=== PATIENT | female | born 1980 | race Caucasian/White ===

== ENCOUNTER 2023-07-27 20:52 | Emergency (ER) | payer BC, SELFPAY ==
[2023-07-27 20:58] VITALS: BP 118/78; PULSE 83; RESP 16; TEMP 36.6; O2SAT 98; BMI 27.4
[2023-07-27 21:14] LABS: Appearance Urine Clear (Clear); Bilirubin Urine Negative (Negative); Blood Urine Negative (Negative); Color Urine Yellow (Yellow); Glucose Urine Negative (Negative); Ketones Urine Negative (Negative); Leukocyte Esterase Urine Trace (Negative); Nitrite Urine Negative (Negative); Protein Urine Negative (Negative); Specific Gravity Urine 1.025 (1.000-1.030); Urobilinogen Urine 0.2 (0.2-1.0)
[2023-07-27 21:54] LABS: Bacteria Urine Few; RBC Urine 0-2 (0-2); Squamous Epithelial Cell Urine Moderate (None-Few)
[2023-07-27 22:35] LABS: Ur HCG Qualitative* Negative (Negative)
--- NOTE | 2023-07-27 22:37 | XR_ITS ---
Patient: AMANDA COLVIN Facility:?[facility] Patient ID:?[id number] Site Patient ID:?[id number]. Site :?[id number] Study:?XRay-Chest 2 VIEW-07/27/2023 11:23:53 PM Ordering Physician:ROSARIO Final Report: INDICATION: Right posterior chest pain TECHNIQUE: Chest radiograph 2 views COMPARISON: None FINDINGS: Mediastinum: The mediastinum is normal in appearance. The cardiac silhouette is at upper limits of normal in size. Lung: Both lungs are unremarkable in appearance. No sign of pleural effusion seen. No pneumothorax is identified. Bone and Soft tissue: Unremarkable for age. IMPRESSION: 1. No acute cardiopulmonary disease is seen. Dictated by Sidney Cross MD @ 07/27/2023 11:31:42 PM Dictated by: Sidney Cross MD @ 07/27/2023 23:31:46 Signed by:?Sidney Cross MD @07/27/2023 11:31:46 PM (Electronic Signature)
--- NOTE | 2023-07-27 22:40 | ED.GENADULT ---
HPI - General Adult General Chief complaint: Flank Pain Stated complaint: R side back pain Time Seen by Provider: 07/27/23 22:28 Source: patient Mode of arrival: ambulatory Limitations: no limitations History of Present Illness HPI narrative: 42-year-old female presents the emergency department for evaluation of right flank area pain since earlier today. Tried taking 2 aspirin just prior to coming to the ED which did improve her pain quite a bit. Pain is worse with taking a deep breath, it is not accompanied by fever or cough. It radiates from the right flank area around the lateral right rib and towards the right upper quadrant of the abdomen. She feels mildly nauseated but there is no vomiting. Pain is not worse with eating but is worse with movement and deep breath. No history of DVT or PE, no swelling in the legs. No trauma or injury, no prior history of similar symptoms. She noticed bruising on her abdomen which caused her concern. No diarrhea, no productive cough. No vomiting. Did not try other interventions besides the aspirin to help with symptoms. Opposite side unaffected, no prior history of similar symptoms. Past medical history benign per her report, no major long-term health problems besides occasional migraines. Her only long-term medication is topiramate nightly for migraine prophylaxis. Nonsmoker. ROS notable for the right flank pain as described above, otherwise denies times 12 systems. Related Data Home Medications Medication Instructions Recorded Confirmed topiramate 50 mg tablet 50 mg PO QDAY 12/14/21 12/14/21 Allergies Allergy/AdvReac Type Severity Reaction Status Date / Time No Known Drug Allergies Allergy Verified 12/14/21 09:33 [facility] Social History Smoking Status: Never smoker Exam Const: Vital Signs, click to edit/add: Vital Signs - 24 hr 07/27/23 20:58 Temperature 98 F Pulse Rate [Pulse Oximeter] 83 Respiratory Rate 16 Blood Pressure [Ri ght Upper Arm] 118/78 Pulse Oximetry 98 Oxygen Delivery Me thod Room Air Documenting provider has reviewed patient's vital signs: yes Common normals: no apparent distress General appearance: cooperative, comfortable and well kempt HENMT: Common normals: normocephalic, moist oral mucous membranes and oropharynx normal Head and scalp: normocephalic Eye: Common normals: conjunctivae normal General eye: normal appearance of both eyes Conjunctiva: conjunctiva(e) normal Neck & C-Spine: Common normals: full ROM and no lymphadenopathy Resp: Common normals: normal respiratory effort, no use of accessory muscles and clear to auscultation bilaterally Effort & inspection: able to speak in complete sentences Auscultation: clear to auscultation bilaterally Cardio: Common normals: regular rate, regular rhythm, S1 normal heart sound, S2 normal heart sound and no murmurs Rate: regular rate Rhythm: regular rhythm Heart sounds: S1 normal and S2 normal GI: Common normals: Normal to inspection, nondistended, normoactive bowel sounds present, soft to palpation, non-tender, no hepatosplenomegaly and no masses Palpation: soft and no hepatosplenomegaly : Common normals: no CVA tenderness Bladder/kidney exam: no CVA tenderness Back & Pelvis: Common normals: no CVA tenderness, thoracic and lumbar spine normal to inspection and no thoracic nor lumbar tenderness Extremity: Common normals: normal to inspection and normal capillary refill Psych: Appearance: well kempt Attitude: engaged Insight: insight good Judgement: judgment good Skin: Narrative: ?bruising? in question is mild diffuse hyperpigmentation likely related to [place] dermatitis or tinnea versicolor Course Course ED Course: Flank pain with urinalysis not suspicious for blood or infection. Pain increased with inspiration, cough and movement suspicious for pleurisy. Differential diagnosis also including pneumonia, musculoskeletal etiology, renal abnormality, gallbladder disease, pulmonary embolism. Declines pain medication. Recommend a few basic labs to look for problems with the gallbladder, as stated urinalysis is reassuring. Will get chest x-ray and await findings. Reevaluation(s) Time of Reevaluation #1: 00:33 Reevaluation #1: Reviewed findings with patient, overall very reassuring. Suspect pleurisy but some constipation was seen on x-ray also, likely noncontributory. Suspect viral pleurisy. I recommend Tylenol and ibuprofen for symptomatic care. If she has persistent symptoms if especially postprandial, should have further workup on gallbladder. No signs of obstruction based on labs today. We reviewed alarm symptoms, all questions answered, written instructions provided. See discharge instructions. Vital Signs Vital signs: Initial Vital Signs Temperature 98 F 07/27/23 20:58 Temperature Source Temporal Artery Scan 07/27/23 20:58 Pulse Rate 83 07/27/23 20:58 Respiratory Rate 16 07/27/23 20:58 Blood Pressure 118/78 07/27/23 20:58 Blood Pressure Mean 91 07/27/23 20:58 Blood Pressure Position Sitting 07/27/23 20:58 Pulse Oximetry 98 07/27/23 20:58 Oxygen Delivery Method Room Air 07/27/23 20:58 Vital Signs Temperature 98 F 07/27/23 20:58 Pulse Rate 83 07/27/23 20:58 Respiratory Rate 16 07/27/23 20:58 Blood Pressure 118/78 07/27/23 20:58 Pulse Oximetry 98 07/27/23 20:58 Oxygen Delivery Method Room Air 07/27/23 20:58 Temperature 98 F 07/27/23 20:58 Pulse Rate 83 07/27/23 20:58 Respiratory Rate 16 07/27/23 20:58 Blood Pressure 118/78 07/27/23 20:58 Pulse Oximetry 98 07/27/23 20:58 Oxygen Delivery Method Room Air 07/27/23 20:58 Medical Decision Making Lab Data Lab results reviewed: Yes I reviewed the patient's lab results Lab results narrative: All reassuring. Labs: Lab Results 07/27/23 07/27/23 07/27/23 Range/Units 21:03 21:59 22:37 WBC (4.50-11.00) K/uL RBC (4.00-5.20) m/uL Hgb (12.0-16.0) gm/dL Hct (33.0-51.0) % MCV (80-100) fL MCH (26-34) pg MCHC (32-36) gm/dL RDW Coeff of Malissa (11.5-15.5) % Plt Count (140-440) K/uL Neut % (Auto) (42.0-72.0) % Lymph % (Auto) (20-44) % Glenn % (Auto) (0.0-11.0) % Eos % (Auto) (0.0-7.0) % Baso % (Auto) (0.0-3.0) % Neut # (Auto) (1.7-7.0) K/uL Lymph # (Auto) (0.90-2.90) K/uL Glenn # (Auto) (0.00-0.90) K/UL Eos # (Auto) (0.00-0.50) K/uL Baso # (Auto) (0.00-0.30) K/uL Abs Immat Gran (auto) (0.00-0.30) K/uL Imm/Tot Granulo (auto) % D-Dimer Quant (PE/DVT) (0.00-0.50) ug/ml Total Bilirubin (0.1-1.5) mg/dL Direct Bilirubin (0.0-0.5) mg/dL AST (12-35) U/L ALT (4-35) U/L Alkaline Phosphatase (40-150) U/L C-Reactive Protein (0.5-1.0) mg/dL Total Protein (6.0-8.3) g/dL Albumin (3.3-5.0) g/dL Lipase (23-300) U/L Urine Color Yellow (Yellow) Urine Appearance Clear (Clear) Urine pH 7.0 (5.0-8.5) Ur Specific Jasper 1.025 (1.000-1.030) Urine Protein Negative (Negative) Urine Glucose (UA) Negative (Negative) Urine Ketones Negative (Negative) Urine Blood Negative (Negative) Urine Nitrite Negative (Negative) Urine Bilirubin Negative (Negative) Urine Urobilinogen 0.2 (0.2-1.0) Ur Leukocyte Esterase Trace A (Negative) Urine RBC 0-2 (0-2) Urine WBC 2-5 (0-5) Ur Squamous Epith Cells Moderate A (None-Few) Urine Bacteria Few A (None) Urine HCG, Qual Negative (Negative) POC Troponin I 0.00 L (0.01-0.04) ng/ml 07/27/23 Range/Units 22:54 WBC 8.57 (4.50-11.00) K/uL RBC 4.40 (4.00-5.20) m/uL Hgb 12.4 (12.0-16.0) gm/dL Hct 37.8 (33.0-51.0) % MCV 86 (80-100) fL MCH 28 (26-34) pg MCHC 33 (32-36) gm/dL RDW Coeff of Malissa 12.2 (11.5-15.5) % Plt Count 344 (140-440) K/uL Neut % (Auto) 61.8 (42.0-72.0) % Lymph % (Auto) 25.0 (20-44) % Glenn % (Auto) 9.5 (0.0-11.0) % Eos % (Auto) 2.1 (0.0-7.0) % Baso % (Auto) 0.5 (0.0-3.0) % Neut # (Auto) 5.31 (1.7-7.0) K/uL Lymph # (Auto) 2.14 (0.90-2.90) K/uL Glenn # (Auto) 0.80 (0.00-0.90) K/UL Eos # (Auto) 0.18 (0.00-0.50) K/uL Baso # (Auto) 0.04 (0.00-0.30) K/uL Abs Immat Gran (auto) 0.09 (0.00-0.30) K/uL Imm/Tot Granulo (auto) 1.1 % D-Dimer Quant (PE/DVT) 0.32 (0.00-0.50) ug/ml Total Bilirubin 0.2 (0.1-1.5) mg/dL Direct Bilirubin 0.1 (0.0-0.5) mg/dL AST 23 (12-35) U/L ALT 22 (4-35) U/L Alkaline Phosphatase 60 (40-150) U/L C-Reactive Protein < 0.5 L (0.5-1.0) mg/dL Total Protein 7.2 (6.0-8.3) g/dL Albumin 4.3 (3.3-5.0) g/dL Lipase 69 (23-300) U/L Urine Color (Yellow) Urine Appearance (Clear) Urine pH (5.0-8.5) Ur Specific Jasper (1.000-1.030) Urine Protein (Negative) Urine Glucose (UA) (Negative) Urine Ketones (Negative) Urine Blood (Negative) Urine Nitrite (Negative) Urine Bilirubin (Negative) Urine Urobilinogen (0.2-1.0) Ur Leukocyte Esterase (Negative) Urine RBC (0-2) Urine WBC (0-5) Ur Squamous Epith Cells (None-Few) Urine Bacteria (None) Urine HCG, Qual (Negative) POC Troponin I (0.01-0.04) ng/ml Imaging Data Chest x-ray: Attestation: I have reviewed the pertinent imaging results. My impression: Normal chest x-ray, fair amount of gas and constipation seen on limited abdominal you Radiologist's impression: IMPRESSION: 1. No acute cardiopulmonary disease is seen. Dictated by Sidney Cross MD @ 07/27/2023 11:31:42 PM ECG Data Attestation: I personally reviewed and interpreted this ECG as follows: Prior ECG tracings: not available for review Interpretation: Normal sinus rhythm, rate 76. Normal intervals and axis. No significant ST or T-wave abnormalities. Normal EKG. Discharge Plan Discharge Clinical Impression: Pleurisy Patient Disposition: Home w/ Parent or Adult Condition: Improved Instructions: Pleurisy (DC) Additional Instructions: As we discussed, I think that your pain is most likely from pleurisy, a viral inflammation of the lining of the lungs. This tends to be worse with deep breath, cough and other stretching movements. Your blood work did not show any signs of complications with the heart, any pneumonia, any kidney stone, signs of gallbladder disease or blood clots. This is all reassuring. As we discussed, if you have nausea or persistent symptoms after eating, you should see your primary care doctor to look more closely at potential gallbladder problems. As also noted, there was a fair amount of gas and constipation seen in your colon. If you are feeling constipated, it would also be reasonable to try twice daily MiraLax for a few days until things clean out nicely. For pain, I recommend Tylenol 1000 mg every 6 hours and/or ibuprofen 600 mg every 6 hours for discomfort. Pleurisy tends to last 1-2 weeks. If there is any high fever, coughing up of blood, severe shortness of breath, worsening abdominal symptoms, you should come back to the emergency department or seek evaluation by your primary care provider. Activity Level: No Restrictions Discharge Diet: Regular Prescriptions: No Action topiramate 50 mg tablet 50 mg PO QDAY Follow Up/Referrals: Provider,Not a Local [Referring] - Stand Alone Forms: [employer] Info Instructions
[2023-07-27 22:59] LABS: Basophils Absolute Auto 0.04 K/uL (0.00-0.30); Basophils Percent Auto 0.5 % (0.0-3.0); Eosinophils Absolute Auto 0.18 K/uL (0.00-0.50); Eosinophils Percent Auto 2.1 % (0.0-7.0); Hematocrit 37.8 % (33.0-51.0); Hemoglobin* 12.4 gm/dL (12.0-16.0); Immature Granulocytes Abs Auto 0.09 K/uL (0.00-0.30); Immature Granulocytes Pct Auto 1.1 %; Lymphocytes Absolute Auto 2.14 K/uL (0.90-2.90); Mean Corpuscular HGB Conc 33 gm/dL (32-36); Mean Corpuscular Hemoglobin 28 pg (26-34); Mean Corpuscular Volume 86 fL (80-100); Monocytes Percent Auto 9.5 % (0.0-11.0); Neutrophils Absolute Auto 5.31 K/uL (1.7-7.0); Neutrophils Percent Auto 61.8 % (42.0-72.0); Platelet Count* 344 K/uL (140-440); RDW Coefficient of Variation % 12.2 % (11.5-15.5); White Blood Count* 8.57 K/uL (4.50-11.00)
[2023-07-27 23:01] LABS: Slide Review Reflex No
[2023-07-27 23:12] LABS: Albumin* 4.3 g/dL (3.3-5.0)
[2023-07-27 23:15] LABS: Bilirubin Direct* 0.1 mg/dL (0.0-0.5); Bilirubin Total* 0.2 mg/dL (0.1-1.5); Lipase* 69 U/L (23-300)
[2023-07-27 23:16] LABS: Alanine Aminotransferase* 22 U/L (4-35); Alkaline Phosphatase* 60 U/L (40-150); Aspartate Amino Transferase* 23 U/L (12-35); D Dimer Quantitative* 0.32 ug/ml (0.00-0.50); Total Protein* 7.2 g/dL (6.0-8.3)
[2023-07-27 23:20] LABS: C Reactive Protein* < 0.5 mg/dL (0.5-1.0)
== END 2023-07-28 00:39 | disposition home or self-care (01) ==
PROVIDERS: Emergency Medicine; Emergency Provider Family Medicine; PCP Family Medicine
DX: R09.1 Pleurisy (principal)
CPT/HCPCS: 36415; 71046; 80076; 81001; 81025; 83690; 84484; 85025; 85379; 86140; 87086; 93005; 99284; 99285

== ENCOUNTER 2023-12-12 00:17 | Emergency (ER) | payer BC, SELFPAY ==
[2023-12-12 00:35] VITALS: BP 134/86; PULSE 78; RESP 18; TEMP 36.2; O2SAT 98
--- NOTE | 2023-12-12 00:57 | ED_ITS ---
HPI - General Adult General Chief complaint: Arrhythmia/Palpitations Stated complaint: heart palpitations, skipping beats Time Seen by Provider: 12/12/23 00:34 Source: patient Mode of arrival: ambulatory Limitations: no limitations History of Present Illness HPI narrative: 43-year-old female with known prior history of PVCs presents to the emergency department with increased PVCs over the last few weeks. Getting these a few times per week now. Reports that she has had a thorough workup for this including blood work and what sounds like a 2 week ZIO patch last year, she does not remember what she was told. She did not have any recommendations have a follow-up echo or stress test as a result. It sounds like this was performed at [facility] and I do not have immediate access to these records overnight. No chest pain, no shortness of breath. She reports that she was feeling a little bit dizzy when she had the episodes earlier today. No history of AFib or dangerous arrhythmia. Does have a family history of coronary artery disease, none in herself. She is a nonsmoker. Denies any illicit drug use, heavy alcohol use or other risk factors for arrhythmia. No prior known history of obstructive sleep apnea. It sounds as though she had blood work a year ago and is not known to have any thyroid disease, electrolyte abnormality, chronic kidney disease. No new trauma or injury. Normal appetite and intake, no fever or recent illness. Did not try any interventions prior to coming to the ED. When asked specifically about any alarm symptoms such as syncope, chest pain, shortness of breath, neurological changes or other red flag symptoms that would typically bring someone to the emergency department overnight, she denies any of these symptoms. It does not sound as though she has had a trial of beta blockers for these. Past medical history benign per her report. No major long-term medical problems. No prior history of chest surgeries. No known drug allergies, no long-term prescription medications. Denies chance of . ROS notable for the PVCs as described above, otherwise denies times 12 systems. Related Data Home Medications ?Medication ?Instructions ?Recorded ?Confirmed clobetasol 0.05 % scalp solution topical 12/12/23 desonide 0.05 % topical cream applic topical 12/12/23 ketoconazole 2 % shampoo topical 12/12/23 Allergies Allergy/AdvReac Type Severity Reaction Status Date / Time No Known Drug Allergies Allergy Verified 10/11/23 18:38 [facility] Social History Smoking Status: Never smoker Exam Const: Vital Signs, click to edit/add: Vital Signs - 24 hr 12/12/23 00:35 Temperature 97.1 F L Pulse Rate [Pulse Oximeter] 78 Respiratory Rate 18 Blood Pressure [Ri ght Upper Arm] 134/86 Pulse Oximetry 98 Oxygen Delivery Me thod Room Air Course Course ED Course: Documentation Laly lacy: Course:? 43-year-old female with known prior history of PVCs presenting with increased PVCs over the last few weeks, a few times per week.? No red flag symptoms such as chest pain, significant dyspnea on exertion.? Vitals are stable.? It sounds as though patient has had thorough workup outpatient I your ago and does not have any known history of underlying kidney disease, thyroid disease or recent major illness.? I recommended EKG, basic labs to look for underlying exacerbating factors such as anemia, electrolyte abnormality, kidney disease, thyroid disease.? Counseled patient that with EMR down time, this may take a few hours.? Will keep on compliance monitor in the interim.? Discussed with patient that she may want to consider going on low-dose beta-tino therapy to help prevent symptoms but she may have side effects like fatigue, slight shortness of breath or dizziness from that treatment.? I do think a trial of the medications may be useful for her and she can decide if the side effects or the PVCs are more bothersome.? I do not see any indications that she would need an echo or advanced workup at this time.? Patient counseled on this.? Await lab results and monitoring trial. EKG per my interpretation showing sinus rhythm of 85.? PVCs present, otherwise normal intervals and axis.? No significant ST or T-wave abnormalities.? Unable to compare to previous, currently EMR down time. Laboratory study showing glucose of 102 sodium 138 potassium 3.8 creatinine 0.7 with a magnesium of 2.1 and a CRP level less than 0.05.? Hemoglobin 12.5 with white blood cell count of 7.9 and platelets of 326.? Neutrophil and differential otherwise unrevealing. Patient is monitored for about 90 minutes with no significant changes.? She reports her symptoms are stable.? Counseled on findings.? PVCs discussed.? Patient is not fully reassured by my explanation.? I encouraged her to consider a primary care outpatient visit to discuss this further.? No PVCs can be quite symptomatic, they are rarely dangerous.? There are no red flags with hers today.? We discussed use of a fitness tracking watch to help monitor for dangerous arrhythmias and we also discussed a trial of a beta-tino like atenolol to help reduce PVCs or her anxiety related to them.? I have encouraged discuss it further with her primary care provider.? Alarm symptoms reviewed that would warrant ED presentation.? Written instructions are provided, all questions answered.? Patient will be discharged home in stable condition. End of note. Vital Signs Vital signs: Initial Vital Signs Temperature 97.1 F L 12/12/23 00:35 Temperature Source Temporal Artery Scan 12/12/23 00:35 Pulse Rate 78 12/12/23 00:35 Pulse Rhythm Regular 12/12/23 00:35 Respiratory Rate 18 12/12/23 00:35 Blood Pressure 134/86 12/12/23 00:35 Blood Pressure Mean 102 12/12/23 00:35 Blood Pressure Position Sitting 12/12/23 00:35 Pulse Oximetry 98 12/12/23 00:35 Oxygen Delivery Method Room Air 12/12/23 00:35 Vital Signs Temperature 97.1 F L 12/12/23 00:35 Pulse Rate 78 12/12/23 00:35 Respiratory Rate 18 12/12/23 00:35 Blood Pressure 134/86 12/12/23 00:35 Pulse Oximetry 98 12/12/23 00:35 Oxygen Delivery Method Room Air 12/12/23 00:35 Temperature 97.1 F L 12/12/23 00:35 Pulse Rate 78 12/12/23 00:35 Respiratory Rate 18 12/12/23 00:35 Blood Pressure 134/86 12/12/23 00:35 Pulse Oximetry 98 12/12/23 00:35 Oxygen Delivery Method Room Air 12/12/23 00:35 Medical Decision Making Lab Data Lab results reviewed: Yes I reviewed the patient's lab results Discharge Plan Discharge Clinical Impression: Premature ventricular contraction Patient Disposition: Home, Self-Care Condition: Stable Instructions: Premature Ventricular Contractions (ED) Additional Instructions: Patient instructions on Laly Portillo: (discharegted) I apologize for the less professional looking discharge instructions, as discussed, we are on computer downtime tonight, we do this once monthly for required patches and updates. As we discussed, your abnormal heartbeat are consistent with PVCs, also known as premature ventricular contractions.? These are very common and they do seem consistent with her prior diagnosis.? I am not seeing any signs of dangerous heart rhythms, blockages in the arteries or other abnormalities.? Your labs were reassuring that there are no dangerous underlying causes for the PVCs.? As we discussed, you may want to consider going on a low-dose beta-tino medication to help prevent these like atenolol.? It does unfortunately carried a side effect of fatigue, some shortness of breath and there may be some dizziness as a result.? This may be something want to discuss more with her primary care provider.? I would like to reassure you though that these beats are not dangerous to you.? You can consider investing in a smart watch with an arrhythmia monitor.? This would help tract dangerous heart rhythms and may give you additional reassurance.? We recommend that people come to an emergency department if the heart rate is persistently over 130 at rest or if they are getting signals of the dangerous heart rhythms from their smart watch. Sometimes you can have increased episodes with recent alcohol intake or excessive caffeine.? Try to avoid these and drink plenty of water.? There could also be a correlation with poor sleep and stress, we recommend trying to mitigate these as best as possible. I do not recommend any additional major testing a like ultrasounds of the heart or stress test based on your symptoms.? I would recommend that he make a follow- up appointment with your primary care provider to discuss things further. Activity Level: No Restrictions Discharge Diet: Regular Prescriptions: No Action desonide 0.05 % cream topical ketoconazole 2 % shampoo topical clobetasol 0.05 % solution topical Follow Up/Referrals: Chanel Fisher MD [Primary Care Provider] - Stand Alone Forms: [employer] Info Instructions
--- OUTSIDE RECORDS SUMMARY | 2023-12-12 00:59 | XMS_ITS | Continuity of Care Document ---
Author Organization [facility] [employer], [id number] Address [address] [place] [address] Assessment Encounter Date Assessment Date Assessment LastModified by Organization Details LastModified Time 09/14/2023 09/14/2023 I spent a total of 40 minutes providing care for this patient including: preparing to see the patient, obtaining a medical history, completing a medically appropriate physical exam, completing documentation of visit information and plans in the EMR, counseling the patient regarding her diagnosis, treatment options and follow up plans, as well as any necessary communication of subsequent test results to the patient. This excludes time spent on separately billable services. [email or web address] Not available 09/14/2023 11:29:31 Plan of Treatment Reminders Order Date Submit Date Provider Last Modified By Organization Details Last Modified Time Details Appointments None record ed. Lab None record ed. Referral None record ed. Procedures None record ed. Surgeries None record ed. Imaging None record ed. Medication Orders None record ed. Patient TargetsNo targets recorded. Patient InstructionsNo instructions recorded. Reason for Referral None Reported. Results Created Date Observation Date Name Description Value Unit Range Abnormal Flag Note LastModifiedBy Organization Detail LastModifiedTime 09/14/19 24 09/14/2023 US, trans vagin al No observ ation record ed. [email or web address] Adams [id number], [place], [address], 09/15/2023 10:09:38 Result Notes None recorded. Problems No Known Problems Procedures Surgical History Date Name Laterality Status Provider Name and Address Organization Details Recorded Time 03/05/20 23 Date of Last [place] [address], [place], [address], [place] [facility] [employer] 09/14/2023 11:18:00 04/05/19 19 [place] [address], [place], [address], [place] [facility] [employer] 09/14/2023 10:22:38 04/28/19 18 Date of Last Pap Smear completed [facility] Will null, [place] [facility] 03/04/2020 17:03:19 04/05/19 07 reduction of fractured nasal bone completed Laly Will null, [facility] CHIEF CONTROLLER 03/04/2020 17:12:27 procedure on ankle completed Ester er Will null, [facility] CHIEF CONTROLLER 03/04/2020 17:11:55 excision of benign lesion of skin of extremities completed Laly Will null, [facility] CHIEF CONTROLLER 03/04/2020 17:12:07 Imaging Results None recorded. Procedure Notes None recorded. Medical Equipment None Reported. Allergies No known drug allergies Medications Name Sig Start Date Stop Date Status Note LastModified by Organization Details LastModified Time valacyclovi r 1 gram tablet active Not Available Not Available Not Available hydrocodone 5 mg-acetamin ophen 325 mg tablet TK 1-2 TS PO Q 6 H PRN P 03/04 completed Not Available Not Available Not Available valacyclovi r 500 mg tablet 09/13 completed Not Available Not Available Not Available cephalexin 500 mg capsule TK 1 C PO Q 8 H TAT 03/04 completed Not Available Not Available Not Available metronidazo le 0.75 % topical cream 09/13 completed Not Available Not Available Not Available methylpredn isolone 4 mg tablets in a dose pack START TODAY 03/04 completed Not Available Not Available Not Available ondansetron 4 mg disintegrat ing tablet DISSOLVE 1 T ON THE TONGUE Q 8 H PRF NAUSEA 03/04 completed Not Available Not Available Not Available topiramate 100 mg tablet 09/13 completed Not Available Not Available Not Available topiramate 50 mg tablet TK 2 TS PO QHS 09/13 completed Not Available Not Available Not Available Norlyda 0.35 mg tablet TAKE 1 TABLET BY MOUTH EVERY DAY 09/13 completed Not Available Not Available Not Available Vitals Date Recorded Body weight Body mass index (BMI) Body height Systolic blood pressure Diastolic blood pressure Provider Name and Address Organization Details Last Updated DateTime 09/14/2023 28842.15 g 30 kg/m2 157.48 cm 112 mm[Hg] 80 mm[Hg] Maddi Solorio (TERMED) [facility] 10:08:10 Social History Question Answer Notes LastModified by Organizat ion Details LastModified Time Tobacco Smoking Status Never Smoker Laly Amaya [place] [employer] 03/04/2020 17:07:20 Do You Have An Advance Directive? No Information not available 03/04/2020 What Is Your Level Of Caffeine Consumption? 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 Information not available 09/20/2023 Sex: Unknown Functional Status Question Answer Note LastModified by Organizat ion Details LastModified Time What is your exercise level? Occasional Information not available 03/04/2020 Mental Status None recorded. Family History Nothing Reported. Medical History Condition Response Endocrinology-Other Endocrinology- Glucose Intolerance/Insul in Resistance Y Hematology- Anemia Y Neurology- Headaches/Migraines Y Gynecological History Statement/Question Response Age at Menarche: 14 Date of Last Mammogram 03/05/2023 Date of LMP 09/08/2023 Current Control Method None History of Gestational Diabetes Y Date of Last Pap Smear 04/28/2017 Obstetrics History GPAL:G 3 P 3 0 0 3 Type Value Full Term 3 Living 3 Total 3 Immunizations Vaccine Type Date Status Provider Name and Address Organization Details Recorded Time Tdap 02/12/2022 completed Maddi Solorio (TERMED) [place] [employer] 09/14/2023 10:06:48 Novel [id number]-[id number], all formulations 02/01/2022 completed Maddi Solorio (TERMED) [place] [facility] [employer]IE[employer] 09/14/2023 10:06:48 Past Encounters Encounter ID Performer Location Encounter Start Date Encounter Closed Date Diagnosis/Indication Diagnosis SNOMED-CT Code Diagnosis ICD10 Code [id number] HAYDEN CURRIE MD [id number] [facility] [address] [place] [id number] 09/14/2023 09:51:41 09/14/2023 11:50:53 Menorrhagia 503214870 N92.0 History of anemia 733018 002 Z86.2 [id number] BRIELLE PEDRO, DO [id number] [facility] [address] [place], [place] [phone] 09/14/2023 10:20:25 09/14/2023 11:52:10 Menorrhagia 382753048 N92.0 Health Concerns Section Related Observation LastModified by Organization Detai ls LastModified Time None Recorded Concern Status LastModified by Organization Details LastModified Time None Recorded Payers Encounter Date Sequence Insurance Name Policy Number Policy Shane Covered Member ID Shane Member ID Guarantor Name 09/14/2023 1 [employer] [employer] [address] Portillo [id number] Laly Portillo Notes Date Note Type Note Provider Name and Address Organization Details Recorded Time 09/14/2023 text/html HPI Notes: 43 yo here for menstrual concerns. Also dx with anemia and Vit D deficiency by holistic doctor. Taking 2 iron tablets every other day. In May bled through tampon and menstrual underwear, through pants and dripping on the floor. Cycles are monthly, and lasting 5-7 days (which is longer than usual for her). Using tampons and does have heavy flow with clots for almost all of the days. No mid cycle bleeding. Has had heavy painful periods for most of her life. Has been on OCPs as early as teen years due to heavy periods. Not on BC currently. Last PCP visit 02/2023 and told pap up to date. Irregular heartbeat, has cardiology consult upcoming Would like for periods to not be so heavy going forward. No known dx of CHTN. Has migraines and has had her whole life and [place] [address] [address], [place], [address], [place] [facility] [employer] 09/14/2023 11:30:52 OBGyn Episode No OBEpisode recorded.
--- OUTSIDE RECORDS SUMMARY | 2023-12-12 00:59 | XMS_ITS | Clinical Summary ---
Author Organization [employer] [facility] Address [place], [place] [address] Care Team Providers Care Bowling Ball Finisher Name Role Phone Pcp, No Unavailable Unavailable Chanel Fisher MD Primary Care Provider Allergies No known active allergies Medications Medication Sig Dispensed Refills Start Date End Date Status metroNIDAZOLE 0.75 % creamIndications:Ros acea Apply topically to affected area(s) two times daily. 45 g 1 02/15/2023 Active valACYclovir (VALTREX) 1 gram tabletIndications:Re current cold sores TAKE 1 TABLET(1 GRAM) BY MOUTH TWICE DAILY 30 Tablet 1 02/15/2023 Active topiramate (TOPAMAX) 100 mg tabletIndications:Mi graine syndrome Take 1 Tablet (100 mg) by mouth once daily. 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 Heart attack Mother Relation Name Status Comments Father Alive Maternal Grandfather Mother Alive Social History Tobacco Use Types Packs/Day Years Used Date Smoking Tobacco: Never Smokeless Tobacco: Never Tobacco Cessation:Counseling Given: Yes Alcohol Use Standard Drinks/Week Comments Yes 0 (1 standard drink = 0.6 oz pur e alcohol) occ PHQ-2 Answer Date Recorded PHQ-2 TOTAL SCORE 0 02/15/2023 Social Connections Answer Date Recorded Frequency of Communication with Friends and Fami ly Not on file 04/05/2021 Financial Resource Strain Answer Date R ecorded Difficulty of Paying Living Expenses Not on file 04/05/2021 Difficulty of Paying Living Expenses Not on file 04/05/2021 Sex and Gender Information Value Date Recorded Sex Assigned at Not on file Gender Identity Not on file Sexual Orientation Not on file Obstetrics History Para Term AB IAB SAB Ectopic Multiple Livin g Live Births 0 0 0 0 0 0 0 0 0 0 Last Filed Vital Signs Vital Sign Reading Time Taken Comments Blood Pressure 106/72 02/15/2023 8:46 AM CYTOTECHNOLOGIST/CYTOLOGY SUPERVISOR Pulse 73 02/15/2023 8:46 AM CYTOTECHNOLOGIST/CYTOLOGY SUPERVISOR Temperature 36.8 ??C (98.2 ??F) 02/12/2022 2:00 PM CS T Respiratory Rate 16 09/11/2021 9:40 AM CDT Oxygen Saturation 97% 02/15/2023 8:46 AM CYTOTECHNOLOGIST/CYTOLOGY SUPERVISOR Inhaled Oxygen Concentration - - Weight 70.8 kg (156 lb) 02/15/2023 8:46 AM CYTOTECHNOLOGIST/CYTOLOGY SUPERVISOR Height 159.8 cm (5' 2.91) 02/15/2023 8:46 AM CS T Body Mass Index 27.71 02/15/2023 8:46 AM CYTOTECHNOLOGIST/CYTOLOGY SUPERVISOR Plan of Treatment Health Maintenance Due Date Last Done Comments HIV for age 15-65 1997 Hepatitis C screening for age 18-79 2000 COVID-19 vaccine series ( season) 2023 Influenza for age 9-49 12/05/2023 02/01/2022 BMI (ht and wt on same day) for age 18+ 02/16/2024 02/15/2023, 02/12/2022, 09/11/2021, Additional history exists Depression screening for age 12+ 02/16/2024 02/15/2023, 02/12/2022, 04/18/2020 Pap test for age 21-65 02/12/2027 , 02/12/2022, 09/25/2009 Tetanus booster 02/13/2032 02/12/2022, 09/25/2009 Tdap Completed 02/12/2022, 09/25/2009 Pneumococcal series for age 6-64 Aged Out No longer eligible based on patient's age to complete this topic Procedures Procedure Name Priority Date/Time Associated Diagnosis Comments HPV THIN PREP Routine 02/12/2022 2:00 PM CYTOTECHNOLOGIST/CYTOLOGY SUPERVISOR Screening for cervical cancer from Last 3 Months or Most Recently Relevant to Health Maintenance Results * HPV HIGH RISK (02/12/2022 2:00 PM CYTOTECHNOLOGIST/CYTOLOGY SUPERVISOR) TYPE 16 Negative Negative 02/16/2022 4:51 PM CYTOTECHNOLOGIST/CYTOLOGY SUPERVISOR [facility] TYPE 18 Negative Negative 02/16/2022 4:51 PM CYTOTECHNOLOGIST/CYTOLOGY SUPERVISOR [facility] TRA LABORATORY OTHER HIGH RISK TYPES Negative Negative 02/16/2022 4:51 PM CYTOTECHNOLOGIST/CYTOLOGY SUPERVISOR [facility] Other (Cervical) Non-Blood / Unknown 02/12/2022 2:00 PM CYTOTECHNOLOGIST/CYTOLOGY SUPERVISOR 02/13/2022 8:56 AM CYTOTECHNOLOGIST/CYTOLOGY SUPERVISOR Narrative [facility] - 02/16/2022 4:51 PM CYTOTECHNOLOGIST/CYTOLOGY SUPERVISOR HPV types 16, 18, 31, 33, 35, 39, 45, 51, 52, 56, 58, 59, 66 and 68 DNA were undetectable or below the pre-set threshold. Methodology: Bernice Rikki 4800 HPV Test Chanel Fisher MD MICROBIOLOGY [facility] [address] [place] [address], [place] from Last 3 Months or Most Recently Relevant to Health Maintenance Care Teams Bowling Ball Finisher Relationship Specialty Start Date End Date Chanel Fisher MD [address] [place] [address] PCP - General Family Practice 05/02/20 Pcp, No . 01/18/18
--- OUTSIDE RECORDS SUMMARY | 2023-12-12 00:59 | XMS_ITS | Data Portability ---
Author Organization [facility] [employer] TE[employer], [id number] Address [address] [place] [address] [address] [place] [address] Assessment Encounter Date Assessment Date Assessment LastModified by Organization Details LastModified Time 03/04/2020 03/04/2020 >50% of the visit was spent in consultation or coordination of care. Total time spent was 20 minutes. [email or web address] Not available 03/04/2020 17:44:34 09/14/2023 09/14/2023 I spent a total of [...] Details Last Modified Time Details Appointments None recorded. Lab None recorded. Referral None recorded. Procedures None recorded. Surgeries None recorded. Imaging US, transvagina l 2023 024 [email or web address] [email or web address] lulu_alexia, [address] , [facility] [address], [place], [address], 09:23:53 Medication Orders Cleo 0.35 mg tablet 2019 020 [email or web address] [id number], [address] [place], [place], [id number], 4 10:06:31 Patient TargetsNo targets recorded. Patient Instructions Encounter Date Encounter Id Patient Instructions Last Modified By Organization Details Last Modified Time 03/04/2020 [id number] We discussed control options including hormonal IUD? s, copper IUD, implantable daniel, Depo-Provera, a progestin-only pill, and condoms. The risks, benefits, and bleeding profile of each option were discussed with the patient. Will start POPs with next period. OK to schedule IUD or implant if she changes her mind. Encouraged urologist consult for spouse to get information about vasectomy procedure. [email or web address] Not available 03/04/2020 17:48:48 Reason for Referral None Reported. Results Created Date Observation Date Name Description Value Unit Range Abnormal Flag Note LastModifiedBy Organization Detail LastModifiedTime 09/14/19 24 09/14/2023 US, trans vagin al No observ ation record ed. frances [address], [facility], [place], [address], 09/15/2023 10:09:38 Result Notes None recorded. Problems No Known Problems Procedures Surgical History Date Name Laterality Status Provider Name and Address Organization Details Recorded Time 03/05/20 23 Date of Last [place] [address] [facility],[address], [place], [address], [place] [facility] 09/14/2023 11:18:00 04/05/19 19 [place] [address] [facility],[address], [place], [address], [place] [facility] 09/14/2023 10:22:38 04/28/19 18 Date of Last Pap Smear completed Laly Will null, [facility] [employer] 03/04/2020 17:03:19 04/05/19 07 reduction of fractured nasal bone completed Laly Will null, [place] - [employer] TE[employer] 03/04/2020 17:12:27 procedure on ankle completed Ester evans Will null, [place] - [employer] TE[employer] 03/04/2020 17:11:55 excision of benign lesion of skin of extremities completed GERBER Díaz E[employer] TE[employer] 03/04/2020 17:12:07 Imaging Results Imaging Date Name Status LastModified by Organization Details LastModified Time 09/14/2023 US, transvaginal completed frances Adams [address], [place], [address], 09/15/2023 10:09:38 Procedure Notes None recorded. Medical Equipment None [...] Address Organization Details Last Updated DateTime 09/14/2023 16068.15 g 30 kg/m2 157.48 cm 112 mm[Hg] 80 mm[Hg] Maddi Solorio (TERMED) [facility] [employer] 10:08:10 Date Recorded Body weight Body mass index (BMI) Body height Systolic blood pressure Diastolic blood pressure Provider Name and Address Organization Details Last Updated DateTime 03/04/2020 74630.23 g 23.2 kg/m2 157.48 cm 116 mm[Hg] 74 mm[Hg] Laly Amaya [facility] [employer] 0 17:13:10 Social History Question Answer Notes LastModified by Organizat [employer] Details LastModified Time Tobacco Smoking Status Never Smoker Laly Amaya [place] [facility] [employer] TE[employer] 03/04/2020 17:07:20 Do You Have An Advance Directive? No Information not available 03/04/2020 What Is Your Level Of Caffeine Consumption? 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 Information not available 09/20/2023 Sex: Unknown Functional Status Question Answer Note LastModified by Organizat [employer] Details LastModified Time What is your exercise level? Occasional Information not available 03/04/2020 Mental Status None recorded. Family History Nothing Reported. Medical History Condition Response Endocrinology-Other Hematology- Anemia Y Neurology- Headaches/Migraines Y Endocrinology- Glucose Intolerance/Insul in Resistance Y Gynecological History Statement/Question Response Age at [...] Time Tdap 02/12/2022 completed Maddi Solorio (TERMED) giuseppe, [facility] [employer] 09/14/2023 10:06:48 Novel Itehhyiqu-[id number], all formulations 02/01/2022 completed Maddi Solorio (TERMED) null, [place] Megan Vicente E[employer]RO TE[employer] 09/14/2023 10:06:48 Past Encounters Encounter ID Performer Location Encounter Start Date Encounter Closed Date Diagnosis/Indication Diagnosis SNOMED-CT Code Diagnosis ICD10 Code [id number] PEDRO LUIS SONG- [id number] [facility]_[address] ,[address] [place] [address] 03/04/2020 17:01:09 03/05/2020 08:29:27 Contraception care management 242737090 Z30.9 [id number] HAYDEN CURRIE MD [id number] [place] [address] [address] [place] [address] 09/14/2023 09:51:41 09/14/2023 11:50:53 Menorrhagia 536264679 N92.0 History of anemia 996559 002 Z86.2 [id number] BRIELLE PEDRO DO [id number] [address] [place] [address] [place] [address] 09/14/2023 10:20:25 09/14/2023 11:52:10 Menorrhagia 309381182 N92.0 Health Concerns Section Related Observation LastModified by Organization Detai ls LastModified Time None Recorded Concern Status LastModified by Organization Details LastModified Time None Recorded Advance Directives Directive N: Payers Encounter Date Sequence Insurance Name Policy Number Policy Shane Covered Member ID Shane Member ID Guarantor Name 03/04/2020 1 [facility] [employer] [facility] Laly Calhoun [facility] [id number] [facility] 09/14/2023 1 [facility]: [facility] EMPLOYEE PROGRAM [facility] Laly Calhoun [facility] [id number] Laly Calhoun [facility] 09/14/2023 1 [facility]: [employer] [facility] Laly Calhoun [facility] [id number] [facility] Notes Date Note Type Note Provider Name and Address Organization Details Recorded Time 03/04/2020 text/html HPI Notes: CONTRACEPTIVE CONSULT The patient presents today requesting control counseling. The patient has one current sex partner(s). Her periods are regular. She denies dysmenorrhea. The patient is is using contraception, currently. Her current contraceptive method is condoms. She is dissatisfied with her current method because of concerns related to inconvenience She has used OCPs in the past with satisfactory results. The patient's past medical history is notable for migraines Spouse willing to get vasectomy but is nervous about it. She is tired of waiting for him. Reviewed all available contraceptive options. Not interested in LARC. Discussed should avoid estrogen containing products due to migraines. Hard to get here for appts so does not want depo. Will try progestin-only pill. Reviewed lower efficacy vs. combined OCs. May want to consider using an additional method such as condoms or spermicide. PEDRO LUIS SONG-BC [id number] [facility],[address], [place], [address], [facility] [employer] 03/04/2020 17:48:57 09/14/2023 text/html HPI Notes: 43 yo here [...] and does [place] [address] [facility],[address], [place], [address], [facility] [employer] 09/14/2023 11:30:52 OBGyn Episode Ob Episode Information Episode Created Date Number of Fetuses Patient Bloodtype Patient rh Status Prepregnancy Weight lbs Domestic Partner Domestic Partner Phone Father Name Mixer Lever Operator Status 03/04/20 20 1 CLOSED Fetus Data First Name Last Name Admitted to NICU Weight (g) Sex Living Outcome Pediatric Complications Fetus ID Race Codes Race Delivery Type 3656.85 8704 F Full Term [id number] Nick Calculation Initial Nick Date Initial Exam Date Initial Exam Provider Initial Ultrasound Date Last Menstrual Period Date Ultra Sound Weeks Gestation 0 Eighteen To Twenty Week Nick Update Ultra Sound Date Fundal Height At Umbil Quickening Date Ultra Sound Latest Weeks Gestation Final Nick Confirmed By Final Nick Confirmed Date Final Nick Date Ultra Sound Latest Days Gestation 0 0 Menstrual History Last Menstrual Date Menses Monthly On Bcp Conception Prior Menses Frequency Hcg Plus Date Menarche Onset Age Delivery Information Delivery Date Delivery Type Labor Anesthesia Weeks Gestation Incision Type Labor Labor Length Hrs Delivered By Post Complications Tubal Sterilization Discharge Date Comments 7 40 Discharge Information Feeding Method Contraceptive Method Maternal HG B and HCT Levels Ob Episode Information Episode Created Date Number of Fetuses Patient Bloodtype Patient rh Status Prepregnancy Weight lbs Domestic Partner Domestic Partner Phone Father Name Mixer Lever Operator Status 03/04/20 20 1 CLOSED Fetus Data First Name Last Name Admitted to NICU Weight (g) Sex Living Outcome Pediatric Complications Fetus ID Race Codes Race Delivery Type 3259.96 5704 M Full Term [id number] Nick Calculation Initial Nick Date Initial Exam Date Initial Exam Provider Initial Ultrasound Date Last Menstrual Period Date Ultra Sound Weeks Gestation 0 Eighteen To Twenty Week Nick Update Ultra Sound Date Fundal Height At Umbil Quickening Date Ultra Sound Latest Weeks Gestation Final Nick Confirmed By Final Nick Confirmed Date Final Nick Date Ultra Sound Latest Days Gestation 0 0 Menstrual History Last Menstrual Date Menses Monthly On Bcp Conception Prior Menses Frequency Hcg Plus Date Menarche Onset Age Delivery Information Delivery Date Delivery Type Labor Anesthesia Weeks Gestation Incision Type Labor Labor Length Hrs Delivered By Post Complications Tubal Sterilization Discharge Date Comments 6 [facility]- [facility]ural [address] Dr Stout Discharge Information Feeding Method Contraceptive Method Maternal HG B and HCT Levels Ob Episode Information Episode Created Date Number of Fetuses Patient Bloodtype Patient rh Status Prepregnancy Weight lbs Domestic Partner Domestic Partner Phone Father Name Mixer Lever Operator Status 03/04/20 20 1 CLOSED Fetus Data First Name Last Name Admitted to NICU Weight (g) Sex Living Outcome Pediatric Complications Fetus ID Race Codes Race Delivery Type 3401.94 M Full Term [id number] Nick Calculation Initial Nick Date Initial Exam Date Initial Exam Provider Initial Ultrasound Date Last Menstrual Period Date Ultra Sound Weeks Gestation 0 Eighteen To Twenty Week Nick Update Ultra Sound Date Fundal Height At Umbil Quickening Date Ultra Sound Latest Weeks Gestation Final Nick Confirmed By Final Nick Confirmed Date Final Nick Date Ultra Sound Latest Days Gestation 0 0 Menstrual History Last Menstrual Date Menses Monthly On Bcp Conception Prior Menses Frequency Hcg Plus Date Menarche Onset Age Delivery Information Delivery Date Delivery Type Labor Anesthesia Weeks Gestation Incision Type Labor Labor Length Hrs Delivered By Post Complications Tubal Sterilization Discharge Date Comments 4 [facility]- [facility]ural [address] Dr Cabezas y Discharge Information Feeding Method Contraceptive Method Maternal HG B and HCT Levels
--- OUTSIDE RECORDS SUMMARY | 2023-12-12 00:59 | XMS_ITS | Continuity of Care Document ---
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 Plan of Treatment Reminders Order Date Submit Date Provider Last Modified By Organization Details Last Modified Time Details Appointments None recorded. Lab None recorded. Referral None recorded. Procedures None recorded. Surgeries None recorded. Imaging US, transvagina l 2023 024 frances [id number]_[id number] le_edina, [address], [address], [place], [address], 09:23:53 Medication Orders None recorded. Patient TargetsNo targets recorded. Patient InstructionsNo instructions recorded. Reason for Referral None Reported. Results Created Date Observation Date Name Description Value Unit Range Abnormal Flag Note LastModifiedBy Organization Detail LastModifiedTime 09/14/19 24 09/14/2023 US, trans vagin al No observ ation record ed. frances Adams [address], [facility], [place], [address], 09/15/2023 10:09:38 Result Notes None recorded. Problems No Known Problems Procedures Surgical History Date Name Laterality Status Provider Name and Address Organization Details Recorded Time 03/05/20 23 Date of Last [place] [address] [facility],[address], [place], [address], [place] [facility] [employer]ED PAY MANAGER 09/14/2023 11:18:00 04/05/19 19 [place] [address] [facility],[address], [place], [address], [place] [facility] [place] [employer] BASED PAY MANAGER 09/14/2023 10:22:38 04/28/19 18 Date of Last Pap Smear completed Laly Will null, [place] - [facility] [employer] BASED PAY MANAGER 03/04/2020 17:03:19 04/05/19 07 reduction of fractured nasal bone completed Laly Will null, [place] [employer] BASED PAY MANAGER 03/04/2020 17:12:27 procedure on ankle completed Ester er Will null, [place] [employer] BASED PAY MANAGER 03/04/2020 17:11:55 excision of benign lesion of skin of extremities completed Laly Will null, [place] [employer] BASED PAY MANAGER 03/04/2020 17:12:07 Imaging Results Imaging Date Name Status LastModified by Organization Details LastModified Time 09/14/2023 US, transvaginal completed frances Wallse [address], [place], [address], 09/15/2023 10:09:38 Procedure Notes None recorded. Medical [...] Address Organization Details Last Updated DateTime 09/14/2023 76599.15 g 30 kg/m2 157.48 cm 112 mm[Hg] 80 mm[Hg] Maddi Solorio (TERMED) [facility] [employer] SK[employer] BASED PAY MANAGER 10:08:10 Social History Question Answer Notes LastModified by Organizat ion Details LastModified Time Tobacco Smoking Status Never Smoker Laly Amaya [facility] [employer] BASED PAY MANAGER 03/04/2020 17:07:20 Do You Have An Advance [...] Address Organization Details Recorded Time Tdap 02/12/2022 kenia Solorio (TERMED) [facility] [employer] BASED PAY MANAGER 09/14/2023 10:06:48 Novel Vjwhxeurp-T5G9-23, all formulations 02/01/2022 completed Maddi Solorio (TERMED) [facility] [facility] [employer] BASED PAY MANAGER 09/14/2023 10:06:48 Past Encounters Encounter ID Performer Location Encounter Start Date Encounter Closed Date Diagnosis/Indication Diagnosis SNOMED-CT Code Diagnosis ICD10 Code [id number] HAYDEN CURRIE MD [id number] [facility] [address] [facility] [address] [place], [place] [address] 09/14/2023 09:51:41 09/14/2023 11:50:53 Menorrhagia 837311224 N92.0 History of anemia 566123 002 Z86.2 [id number] BRIELLE PEDRO, [id number] [facility] [address] [facility] ,[address] [place] [address] 09/14/2023 10:20:25 09/14/2023 11:52:10 Menorrhagia 310356920 N92.0 Health Concerns Section Related Observation LastModified by Organization Detai ls LastModified Time None Recorded Concern Status LastModified by Organization Details LastModified Time None Recorded Payers Encounter Date Sequence Insurance Name Policy Number Policy Shane Covered Member ID Shane Member ID Guarantor Name 09/14/2023 1 [employer] [employer] [place]GRAM [id number] Laly Unique Portillo [id number] Laly Portillo Notes Date Note Type Note [...] and [place] [address] [facility],[address], [place], [address], [place] - [facility] [employer] BASED PAY MANAGER 09/14/2023 11:30:52 OBGyn Episode No OBEpisode recorded.
[2023-12-12 05:51] LABS: Anion Gap 9 mEq/L (7-15); Carbon Dioxide* 27 mmol/L (20-32); Chloride* 102 mmol/L (96-114); Potassium* 3.8 mmol/L (3.6-5.1); Sodium* 138 mmol/L (135-149)
[2023-12-12 05:52] LABS: Blood Urea Nitrogen* 14 mg/dL (5-24); C Reactive Protein* < 0.5 mg/dL (0.5-1.0); Calcium* 9.2 mg/dL (8.4-10.6); Creatinine* 0.7 mg/dL (0.5-1.5); Estimated Glomerular Filt Rate 111 ml/min; Glucose* 102 mg/dL (60-115); Magnesium* 2.1 mg/dL (1.5-2.6)
[2023-12-12 05:53] LABS: Basophils Percent Auto 0.5 % (0.0-3.0); Hematocrit 38.4 % (33.0-51.0); Hemoglobin* 12.5 gm/dL (12.0-16.0); Lymphocytes Percent Auto 25.7 % (20-44); Mean Corpuscular HGB Conc 33 gm/dL (32-36); Mean Corpuscular Hemoglobin 28 pg (26-34); Mean Corpuscular Volume 86 fL (80-100); Monocytes Percent Auto 7.8 % (0.0-11.0); Neutrophils Percent Auto 62.6 % (42.0-72.0); Platelet Count* 326 K/uL (140-440); Red Blood Count 4.48 m/uL (4.00-5.20); Slide Review Reflex No
== END 2023-12-12 02:20 | disposition home or self-care (01) ==
PROVIDERS: Emergency Provider Family Medicine; PCP Family Medicine
DX: I49.3 Ventricular premature depolarization (principal)
CPT/HCPCS: 36415; 80048; 81003; 83735; 84443; 85025; 86140; 93005; 99284